=== PATIENT | male | born 1980 | race Caucasian/White ===

== ENCOUNTER 2022-11-24 23:04 | Emergency (ER) | payer MEDICAID ==
[~2022-11-24] VITALS: Ht 182.9 cm; Wt 87.8 kg
[2022-11-24] MEDS ORDERED: ibuprofen tablet 400 MG TABLET PO ONE (23:30)
[2022-11-24] MEDS ORDERED: IBUP-1986 PO (23:34)
[2022-11-25 00:16] VITALS: BP 132/81
== END 2022-11-25 00:19 | disposition home or self-care (01) ==
LOC: ER 23:08
DX: S93.492A Sprain of other ligament of left ankle, initial encounter (principal); X50.9XXA Other and unspecified overexertion or strenuous movements or postures, initial encounter; Y93.89 Activity, other specified; Y92.89 Other specified places as the place of occurrence of the external cause; Y99.8 Other external cause status
CPT/HCPCS: 29515; 73610; 99283; L1930

== ENCOUNTER 2022-12-10 19:18 | Emergency (ER) | payer MEDICAID ==
[~2022-12-10] VITALS: Ht 182.9 cm; Wt 88.6 kg
[~2022-12-10 19:18] MED LIST: IBUP-1986 PO
[2022-12-10 19:44] VITALS: BP 143/93
[2022-12-10] MEDS ORDERED: amox tr/potassium clavulanate 875/125mg TAB PO ONE (20:20)
[2022-12-10] MEDS ORDERED: sulfamethoxazole/trimethoprim DS (800/160mg) tablet PO ONE (20:20)
[2022-12-10] MEDS ORDERED: HYDR-3965 PO (20:22)
[2022-12-10] MEDS ORDERED: SULF1TAB49 PO (20:22)
[2022-12-10] MEDS ORDERED: AMOX-117 PO (20:22)
== END 2022-12-10 20:33 | disposition home or self-care (01) ==
LOC: ER 19:19
DX: L03.115 Cellulitis of right lower limb (principal); Z79.899 Other long term (current) drug therapy
CPT/HCPCS: 99283